=== PATIENT | female | born 1995 | race Caucasian/White ===

== ENCOUNTER 2024-02-18 11:05 | Emergency (ER) | payer OTHER ==
[~2024-02-18] VITALS: Ht 172.7 cm; Wt 114.7 kg
[2024-02-18] MEDS ORDERED: PANT40TA29 PO (11:13)
[2024-02-18] MEDS ORDERED: FAMO40TA3 PO (11:13)
[2024-02-18] MEDS: ACETAMINOPHEN 500 MG TAB PO ONE (12:44)
[2024-02-18] MEDS: KETOROLAC 60MG 2ML VIAL IM ONE (12:49)
[2024-02-18 13:41] VITALS: BP 131/86; TEMP 96.8; O2SAT 98
== END 2024-02-18 13:42 | disposition home or self-care (01) ==
LOC: M ED 11:05
DX: S09.90XA Unspecified injury of head, initial encounter (principal); W22.8XXA Striking against or struck by other objects, initial encounter; G43.909 Migraine, unspecified, not intractable, without status migrainosus; Z79.899 Other long term (current) drug therapy; Y92.009 Unspecified place in unspecified non-institutional (private) residence as the place of occurrence of the external cause; Y93.89 Activity, other specified; Y99.9 Unspecified external cause status
CPT/HCPCS: 70450; 96372; 99283; J1885

== ENCOUNTER 2024-04-07 14:24 | Emergency (ER) | payer OTHER ==
[~2024-04-07] VITALS: Ht 172.7 cm; Wt 116.3 kg
[~2024-04-07 14:24] MED LIST: FAMO40TA3 PO; PANT40TA29 PO
[2024-04-07 16:20] LABS: APPEARANCE, URINE HAZY (CLEAR); BACTERIA, URINE AUTO NEGATIVE (NEGATIVE); BILIRUBIN, URINE AUTO NEGATIVE (NEGATIVE); BLOOD, URINE BLOOD 3+ (NEGATIVE); COLOR, URINE YELLOW (YELLOW); GLUCOSE, URINE (UA) AUTO NEGATIVE (NEGATIVE); KETONE, URINE AUTO NEGATIVE (NEGATIVE); LEUKOCYTE ESTERASE, URINE AUTO NEGATIVE (NEGATIVE); MUCUS, URINE SMALL (NEGATIVE); NITRITE, URINE AUTO NEGATIVE (NEGATIVE); PROTEIN, URINE AUTO 2+ mg/dL (NEGATIVE); RBC, URINE AUTO TNTC /HPF (0-3); SPECIFIC GRAVITY URINE AUTO 1.026 (1.002-1.035); SQUAMOUS EPITHELIAL CELL UR AU 5 /HPF (0-6); UROBILINOGEN, URINE AUTO 0.2 mg/dL (0.0-2.0); WBC, URINE AUTO 0 /HPF (0-3)
[2024-04-07 17:41] LABS: BASO # 0.1 10^3/uL (0.0-0.2); BASO % 0.5 % (0.0-1.0); EOS # 0.3 10^3/uL (0.0-0.5); EOS % 1.7 % (0.0-3.0); HEMATOCRIT 36.8 % (36.0-47.0); HEMOGLOBIN 12.7 g/dl (12.0-15.5); LYMPH # 3.1 10^3/uL (1.5-5.0); LYMPH % 20.7 % (24.0-44.0); MEAN CORPUSCULAR HEMOGLOBIN 29.9 pg (27.0-33.0); MEAN CORPUSCULAR HGB CONC 34.5 g/dl (32.0-36.5); MEAN CORPUSCULAR VOLUME 86.6 fl (80.0-96.0); MONO # 0.6 10^3/uL (0.0-0.8); MONO % 4.3 % (2.0-8.0); NEUTROPHILS # 10.7 10^3/uL (1.5-8.5); NEUTROPHILS % 72.4 % (36.0-66.0); PLATELET COUNT, AUTOMATED 266 10^3/uL (150-450); RED BLOOD COUNT 4.25 10^6/uL (4.00-5.40); WHITE BLOOD COUNT 14.8 10^3/uL (4.0-10.0)
[2024-04-07] MEDS: ONDANSETRON 4MG 2ML VIAL IV ONE (18:44)
[2024-04-07] MEDS: MORPHINE 2 MG/ML 1ML VIAL IV ONE (18:45)
[2024-04-07 18:47] VITALS: BP 136/68
[2024-04-07 19:21] VITALS: TEMP 97.8; O2SAT 99
== END 2024-04-07 19:23 | disposition home or self-care (01) ==
LOC: M ED 14:24
DX: O20.0 Threatened abortion (principal); K21.9 Gastro-esophageal reflux disease without esophagitis; J45.909 Unspecified asthma, uncomplicated; G43.909 Migraine, unspecified, not intractable, without status migrainosus; F17.200 Nicotine dependence, unspecified, uncomplicated; F12.10 Cannabis abuse, uncomplicated; Z79.899 Other long term (current) drug therapy; Z3A.01 Less than 8 weeks gestation of pregnancy
CPT/HCPCS: 76801; 76817; 81001; 84702; 85025; 86850; 86900; 86901; 87086; 93976; 96374; 96375; 99284; J2405

== ENCOUNTER → 2024-04-09 | Outpatient (CLI) | payer OTHER | LOC: M LAB 14:47 | PROVIDERS: ATTEND Physician Assistant | DX: O20.0 Threatened abortion (principal) ==

== ENCOUNTER → 2024-04-16 | Outpatient (CLI) | payer OTHER | LOC: M LAB 15:07 | PROVIDERS: ATTEND Obstetrics & Gynecology Obstetrics | DX: O02.81 Inappropriate change in quantitative human chorionic gonadotropin (hCG) in early pregnancy (principal); Z3A.00 Weeks of gestation of pregnancy not specified ==

== ENCOUNTER → 2024-04-23 | Outpatient (CLI) | payer OTHER | LOC: M LAB 14:18 | PROVIDERS: ATTEND Obstetrics & Gynecology Obstetrics | DX: Z71.2 Person consulting for explanation of examination or test findings (principal) ==